=== PATIENT | female | born 1980 ===

== ENCOUNTER 2016-12-25 19:42 | Emergency (ER) | payer MEDICAID ==
[2016-12-25 20:47] VITALS: BMI 25.6
[2016-12-25 21:25] LABS: URINE BACTERIA RARE (<OCC); URINE BILIRUBIN NEGATIVE (NEGATIVE); URINE BLOOD NEGATIVE (NEGATIVE); URINE CLARITY TURBID (Clear); URINE COLOR YELLOW (YELLOW); URINE GLUCOSE (UA) NEG (Normal); URINE LEUKOCYTE ESTERASE NEG Leu/uL (Negative); URINE NITRATE NEGATIVE (NEGATIVE); URINE PROTEIN NEGATIVE (NEGATIVE); URINE UROBILINOGEN 0.2-1.0 mg/dL (0.2-1.0)
== END 2016-12-25 21:15 | disposition home or self-care (01) ==
LOC: H.EROB2 19:42
DX: O47.03 False labor before 37 completed weeks of gestation, third trimester (principal); Z3A.21 21 weeks gestation of pregnancy

== ENCOUNTER 2017-03-11 04:59 | Emergency (ER) | payer MEDICAID ==
[2017-03-11 04:59] VITALS: BMI 25.6
--- NOTE | 2017-03-11 08:06 | OBHP ---
Datetime: 03/11/2017 06:48 IP Adm Impression: , intrauterine IP Admit Plan: Discharge home Admit Comment, IP Provider: 36 yo at 32.0 weeks confirmed by u/s at 8w, with an ALMA of 05/06/17 presents to [facility] with complaints of abdominal discomfort and abdominal pain. Denies vaginal bleeding , loss of fluid, regular contractions. Feels fetus moving. Last sexual activity one day ago. Denies any problems with this . Past OBhx: none. . Past medical hx: colon cancer at age 19, ovarian cyst. Follows up with GI regularly for colonoscop ies. Past surg hx: colon tumor resection in 1999, L oophorectomy in 2002, tummy tuck in 2013. Social hx: denies tobacco, alcohol, drug use Meds: vitamins Allergies: NKDA care: [facility] Next visit 03/13. ROS: denies chest pain, shortness of breath, nausea, vomiting, diarrhea, headache, dizziness, toil eting issues PE: BP: 99/56. HR 88. FHR: 145 General: AAOx3, not in acute distress CV: S1,S2, regular rate and rhythm Abd: gravid, +BS Back: negative for CVA tenderness bilaterally Extremities: no edema, no pain on palpation Assessment: 36 yo with IUP at 32.0 weeks. Not in active labor at this time. Abdominal discomf ort likely due to intestinal gas. Reassuring FHR. Plan: Discharge home with labor precautions- explained to pt to return to hospital if there is vaginal b leeding, loss of fluid, decreased movement, or contractions that occur closer together and are stronger. -[email or web address] Addendum by Dr. Manuel: Patient evalauted independently and I agree with the above. Patient is a @ 32 wks with history of abdominal pain that was unresolving. Patient otherwise denies VB, leaking , +FM, no ctxns. Patient is AMA, has a history of colon cancer with colon resection and abdominalplas ty. When patient was being evalauted, patient reported she no longer had abdominal pain or discomfort . FHR = 125 mod kayla, +accels, no decels, pt had occasional contractions did not feel them while being evaluated. Patient currently asymptomatic, ruled out for labor, possible GI discomfort the p atient was having. Extremities - PN: Normal Abdomen - PN: Normal Back - PN: Normal Lungs - PN: Normal Heart - PN: Normal Thyroid - PN: Not Done HEENT - PN: Normal General - PN: Normal FHR - Baseline A Provider: 125 Comments, ACOG Physical Exam: scars from prior abdominal surgeries visualized. Gestation - Est Wks by US: 32.0 IP Hx Assessment: The History has been Reviewed and is Current EGA AdmitDate IP: 32.0 Vital Signs Provider: Reviewed IP Chief Complaint: Maternal discomfort NICHD Variability Prov Fetus A: Moderate 6-25bpm NICHD Accel Fetus A IP Provider: 15X15 FHR Category Provider Fetus A: Category I Datetime: 12/25/2016 21:28 IP Chief Complaint Other: vaginal brown discharge. Pelvic Type - PN: Adequate Neurologic - PN: Normal Dilatation, Provider: 0 Genitourinary Exam: Normal
--- NOTE | 2017-03-11 08:08 | OBDCSUM ---
Datetime: 03/11/2017 06:28 Discharged to, Provider: Home Follow up at, Provider: [facility] Disch Instr Activity: Normal activity Disch Instr Diet: Regular Discharge Instructions, Provider: Routine instructions given Discharge Diagnosis, Provider: False Labor - Undelivered Discharge Time: 03/11/2017 06:31 Follow up in weeks, Provider: 03/13/2017 Disch Referrals: None Contraception discussed, Prov: Yes Disch Activity Restrictions: No lifting
[2017-03-11 10:47] VITALS: BP 95/56; PULSE 90
== END 2017-03-11 06:30 | disposition home or self-care (01) ==
LOC: H.EROB2 04:59
DX: O47.03 False labor before 37 completed weeks of gestation, third trimester (principal); Z3A.32 32 weeks gestation of pregnancy

== ENCOUNTER 2017-04-26 07:03 | Inpatient (IN) | payer MEDICAID ==
[2017-04-26 07:54] VITALS: BMI 29.6
[2017-04-26] MEDS ORDERED: Lactated Ringer's 1,000 ML IV SCH ×2 (08:00)
--- NOTE | 2017-04-26 08:43 | OBADHP ---
Datetime: 04/26/2017 08:21 Pelvic Type - PN: Adequate Extremities - PN: Normal Abdomen - PN: Normal Back - PN: Normal Breast - PN: Not Done Lungs - PN: Normal Heart - PN: Normal Thyroid - PN: Normal Neurologic - PN: Normal HEENT - PN: Normal General - PN: Normal FHR - Baseline A Provider: 130 Amniotic Fluid Color, Provider: Clear Membranes, Provider: Ruptured Comments, ACOG Physical Exam: GBS negative RPR/HIV negative. GC/Ch negative Cervical Exam: closed Spec exam: Positive pulling, ROM, Ferning + U/S cephalic presentation Pool Provider: Positive Ferning Provider: Positive Vital Signs Provider: Reviewed; Within Normal Limits IP Chief Complaint: Uterine contractions; Suspected ruptured membranes NICHD Accel Fetus A IP Provider: 15X15 FHR Category Provider Fetus A: Category I NICHD Decel Fetus A IP Provider: None Dilatation, Provider: Closed Genitourinary Exam: Normal DTRs - PN: Normal EGA AdmitDate IP: 38.4 IP Admit Plan: Admit to unit; Initiate labor augmentation protocol; Observation/Evaluation Datetime: 04/26/2017 08:10 Admit Comment, IP Provider: 36 yo at 38.4 weeks confirmed by u/s at 8w, with an ALMA of 05/06/17 presents to [facility] with complaints of abdominal discomfort/CTX and SROM. Admits LOF/CTX and some bleed ing. Feels fetus moving. Denies any problems with this . Past OBhx: none. . Past medical hx: colon cancer at age 19, ovarian cyst. Follows up with GI regularly for colonoscop ies. Past surg hx: colon tumor resection in 1999, L oophorectomy in 2002, tummy tuck in 2013. Social hx: denies tobacco, alcohol, drug use Meds: vitamins Allergies: NKDA care: [facility] [place] PNL: GBS nega, RPR/HIV neg FH: Denies ROS: denies chest pain, shortness of breath, nausea, vomiting, diarrhea, headache, dizziness, toil eting issues PE: BP: 106/64. FHR: 130 General: AAOx3, not in acute distress CV: S1,S2, regular rate and rhythm Abd: gravid, +BS Back: negative for CVA tenderness bilaterally Extremities: no edema, no pain on palpation Cervical Exam: closed Spec exam: Positive pulling, ROM, Ferning + U/S cephalic presentation Assessment: 36 yo with IUP at 38.4 weeks. CTX, Not in active labor at this time. Reassuring F HR. - Admit patient to L_D - Labs Ordered - Start labor augmentation Case discussed with Dr. Major --- Julio C Crystal, [facility] [facility] pt was seen and examined by me with PGY1 - agree with note EXCEPT PLAN LABO R INDUCTION will admit; IV access; observe progress...condition, IOL, pain management, medications, labor, delivery and care MAHNDO Presentation-Admit: Vertex IP Hx Assessment: The History has been Reviewed and is Current NICHD Variability Prov Fetus A: Moderate 6-25bpm Effacement, Provider: destiny Red, Provider: high IP Adm Impression: Term, intrauterine ; No Active Labor; Ruptured Membranes Datetime: 03/11/2017 06:48 Gestation - Est Wks by US: 32.0 Datetime: 12/25/2016 21:28 IP Chief Complaint Other: vaginal brown discharge.
[2017-04-26 10:25] LABS: BASO % 0.3 % (0.0-2.0); EOS # 0.1 K/uL (0.0-0.7); EOS % 0.9 % (0.0-4.0); HEMATOCRIT 40.9 % (34.0-47.0); LYMPH # 2.3 K/uL (1.0-4.3); LYMPH % 29.4 % (20.0-40.0); MEAN CELL VOLUME 91.1 fl (81.0-99.0); MEAN CORPUSCULAR HEMOGLOBIN 30.9 pg (27.0-31.0); MEAN PLATELET VOLUME 10.6 fl (7.2-11.7); MONO # 0.7 K/uL (0.0-0.8); NEUT # 4.8 K/uL (1.8-7.0); NEUT % 60.4 % (50.0-75.0); NRBC % 0.1 % (0.0-0.0); RED CELL DISTRIBUTION WIDTH 13.5 % (11.5-14.5); WHITE BLOOD COUNT 7.9 K/uL (4.8-10.8)
[2017-04-26] MEDS ORDERED: Sodium Chloride 0.9% 1,000 ML IV SCH (11:00)
[2017-04-26] MEDS ORDERED: Oxytocin 30 UNITS in Sodium Chloride 0.9% 500 ML IV ONE (23:08)
[2017-04-27] MEDS ORDERED: Nalbuphine 20 mg/ml Inj (1 ml) IVP PRN (01:21)
[2017-04-27] MEDS ORDERED: Lactated Ringer's 1,000 ML IV SCH (02:00)
[2017-04-27] MEDS: Lactated Ringer's 1,000 ML IV SCH ×2 (04:00→05:00)
[2017-04-27] MEDS ORDERED: Fentanyl/Bupivacaine HCl 250 ML EPI ONE (05:40)
[2017-04-27] MEDS ORDERED: Oxytocin 30 UNITS in Sodium Chloride 0.9% 500 ML IV ONE (06:16)
[2017-04-27] MEDS ORDERED: Lidocaine 1% Inj (20ml) ONE (06:19)
[2017-04-27] MEDS ORDERED: Benzocaine/Menthol SPRAY TOP PRN ×2 (09:09→13:31)
[2017-04-27] MEDS ORDERED: Oxycodone/Acetaminophen 5/325 mg Tab PO PRN ×4 (09:09→13:31)
[2017-04-27] MEDS ORDERED: Measles, Mumps, and Rubella 0.5 ML VIAL SC ONE (09:09)
[2017-04-27] MEDS ORDERED: Ammonia 2% Inhalant ONE (10:26)
--- NOTE | 2017-04-27 11:21 | OBDS ---
DELIVERY PERSONNEL Nurse Burglar Alarm Assembler Certified: alexey Delivery Doctor: Dr Thompson Scrub Nurse: alexey Camp Guard: GRIS Brody;GRIS Johnson Anesthesiologist: alexey Demand Inspector: alexey Resident: Dr Xavier MATERNAL INFORMATION Delivery Anesthesia: Local; Epidural Medications in Delivery: pitocin Estimated Blood Loss (ml): 200 Placenta Cultured: na Maternal Complications: Other RN Comments: Delivered by baby boy; 7/9 with shoulder dystocia; 7/9;Dr Callahan in [facility];with nursery nurses; code OB called ; outcome good;see MD's notes Provider Comments: Normal spontaneous vaginal delivery. Patient delivered viable infant male with Apgars of 7 and 9 at one and 5 minutes respectively. Inf ant delivered via ARIADNA position. After delivery of the head, shoulder dystocia encountered. Patient placed in [place] posit ioning, suprapubic pressure applied by RN. Midline episiotomy performed. After rotation of the staff toxicologist ior shoulder, infant delivered without complication. Pediatrics present at delivery. Cord gases collected. Cord blood collected. Placenta delivered spontaneously. Laceration repaired, as above. Patient tolerated delivery and repair well. Uterus firm and appropriately hemostatic follo wing delivery. Estimated blood loss 300 mL. LABOR SUMMARY EDC: 05/06/2017 00:00 No. Babies in Womb: 1 Attempted: No Labor Anesthesia: Epidural LABOR INFORMATION Onset of Labor: 04/27/2017 01:30 Complete Dilatation: 04/27/2017 07:25 Cervical Ripening Agents: Cytotec @ (Annotations: Fourth dose of Cytotec 50 mcg tab PO given ) Oxytocin: N/A Group B Beta Strep: Negative Antibiotics # of Doses: 0 Antibiotics Time of Last Dose: 0 Steroids Given: None Reason Steroids Not Administered: Not Applicable Other Reason Not Administered: na MEMBRANES Membranes Rupture Method: Spontaneous Rupture of Membranes: 04/26/2017 06:00 Length of Rupture (hrs): 26.75 Amniotic Fluid Color: Clear Amniotic Fluid Amount: None Amniotic Fluid Odor: Normal STAGES OF LABOR Stage 1 hrs: 5 Stage 1 min: 55 Stage 2 hrs: 1 Stage 2 min: 20 Stage 3 hrs: 0 Stage 3 min: 5 Total Time in Labor hrs: 7 Total Time in Labor min: 20 VAGINAL DELIVERY Episiotomy: Median Laceration Extension: Second Degree Laceration Type: Perineal Laceration Repair: Yes Laceration Repair Note: Second-degree midline perineal episiotomy performed due to shoulder dystocia . After delivery of infant and placenta, perineal area infiltrated with 1% lidocaine. Laceration repa ired with 2. 0 repeat without complication. Patient tolerated well. Well. Initial Vag Sponge Count: 6 Final Vag Sponge Count: 6 Initial Vag Sharps Count: 3 Final Vag Sharps Count: 3 Sponge Count Correct: Yes Sharps Count Correct: Yes Count Comment: correct count BABY A INFORMATION Infant Delivery Date/Time: 04/27/2017 08:45 Method of Delivery: Vaginal Born in Route : No : N/A Forceps: Outlet Vacuum Extraction: N/A Shoulder Dystocia : Yes ASSISTED DELIVERY BABY A Indication for Assisted Delivery: na SHOULDER DYSTOCIA BABY A Delivery of Head: 04/27/2017 08:44 Infant Delivery Date/Time: 04/27/2017 08:45 Time Head to Delivery : 1.0 1st Intervention to Resolve: McRobert's Maneuver 2nd Intervention to Resolve: Suprapubic Pressure 3rd Intervention to Resolve: Episiotomy Verify NO Fundal Pressure: No Fundal Pressure Applied PRESENTATION/POSITION BABY A Presentation: Cephalic Cephalic Presentation: Vertex Breech Presentation: N/A PLACENTA INFORMATION BABY A Placenta Delivery Time : 04/27/2017 08:50 Placenta Method of Delivery: Spontaneous Placenta Status: Delivered SCORES BABY A Heart Rate 1 min: >100 bpm Resp Effort 1 min: Good Cry Reflex Irritability 1 min: Grimace Muscle Tone 1 min: Some Flexion of Extremities Color 1 min: Body [place], Extremities Blue SCORE 1 MIN: 7 Heart Rate 5 min: >100 bpm Resp Effort 5 min: Good Cry Reflex Irritability 5 min: Cough or Sneeze or Pulls Away Muscle Tone 5 min: Active Motion Color 5 min: Body [place], Extremities Blue SCORE 5 MIN: 9 INFORMATION BABY A Gestational Age at Delivery: 38.4 Gestational Status: Term Outcome : Liveborn Condition : Stable Infant Sex: Male IDENTIFICATION/MEDS BABY A ID Band Location: Left Leg; Left Arm WEIGHT/LENGTH BABY A Infant Birthweight (gms): 3900 Weight (lb): 8 Weight (oz): 10 CORD INFORMATION BABY A No. Cord Vessels: 3 Nuchal Cord : na Nuchal Cord Other: na True Knot: x1 Cord pH Baby Venous: yes Cord Blood Taken: Yes Banking/Donate Info: no Infant Suction: Mouth; Nose; Pharynx
[2017-04-28 06:25] LABS: HEMATOCRIT 32.8 % (34.0-47.0); MEAN CORPUSCULAR HEMOGLOBIN 30.2 pg (27.0-31.0); MEAN CORPUSCULAR HGB CONC 32.8 g/dL (33.0-37.0); RED CELL DISTRIBUTION WIDTH 13.8 % (11.5-14.5); WHITE BLOOD COUNT 12.4 K/uL (4.8-10.8)
[2017-04-28] MEDS ORDERED: Prenatal Multivit/Folic Acid/Iron Tab PO SCH ×2 (09:00)
--- NOTE | 2017-04-28 09:39 | OBPPN ---
Datetime: 04/28/2017 04:46 PP Pain Prov: Within normal limits PP Nausea Prov: Denies PP Flatus Prov: Yes PP BM Prov: No PP Breasts Prov: Not Done PP Heart Prov: Normal PP Lungs Prov: Normal PP Abdomen/Uterus Prov: Normal PP Lochia Prov: Normal PP Vulva/Perineum Prov: Normal PP CVA Tenderness Prov: Normal PP Extremities Prov: Normal PP C/S Incision Prov: Normal PP Progress Prov: Normal PP Impression Prov: Normal progression PP Plan Prov: Continue present management PP Progress Note Prov: PPD#1 S: pt seen and examined bedside this AM. s/p NVD. No acute overnight events. Admits mild pain but well controlled on meds. Pt is eating regular diet, and ambulating and voiding without difficulties. Patient is breastfeed her baby. +/- gas, BM. Denies fever, chills, headache, chest pain, dyspnea, pal pitations, n/v/d/c and remains afebrile. O: VS stable GEN: NAD Cardio: S1S2 no M/G/R Resp: vesicular breathing b/l Abdomen: no tenderness to palpation. BS+, Fundus is firm, at the umbilicus Neuro: AAO x 3 Ext: no edema noted, no calf tenderness Assessment/Plan: 36 y/o female delivered @ 38.4 wks to a baby boy via NVD on 04/27/17. Doing well PPD1. OOB with caution SCD's for DVT prophylaxis, ambulating Percocet 5/325mg 1-2 tablets po q6 for mod/sev pain Ibuprofen 600mg 1 tab Encourage and ambulation Senakot 17.2mg PO qHS Follow up CBC --- Julio C Crystal, PGY I [facility]...With PY1, I saw and examined pt. agree with note. Discussed condition wi th pt - incl active management, pain medications, labor IOL, delivery and care. She did n ot want any medications even for induction at this time. RUBI IP PP Procedures: Rubella Vital Signs Provider PP: Reviewed; Within Normal Limits
[2017-04-28] MEDS ORDERED: Measles, Mumps, and Rubella 0.5 ML VIAL SC ONE (10:00)
[2017-04-29] MEDS ORDERED: Measles, Mumps, and Rubella 0.5 ML VIAL SC ONE (09:00)
--- NOTE | 2017-04-29 09:29 | OBPPN ---
Datetime: 04/29/2017 05:48 PP Pain Prov: Within normal limits PP Nausea Prov: Denies PP Flatus Prov: Yes PP BM Prov: No PP Breasts Prov: Not Done PP Heart Prov: Normal PP Lungs Prov: Normal PP Abdomen/Uterus Prov: Normal PP Lochia Prov: Normal PP Vulva/Perineum Prov: Normal PP CVA Tenderness Prov: Normal PP Extremities Prov: Normal PP C/S Incision Prov: Not Applicable PP Progress Prov: Normal PP Impression Prov: Normal progression PP Plan Prov: Continue present management PP Progress Note Prov: PPD#2 S: pt seen and examined bedside this AM. s/p NVD. Mom is worried about baby, doesnt want to get d/ c home today b/c baby is not d/c by fixing machine operator due to uncontrolled BS. Denies pain. Pt is eating re gular diet, and ambulating and voiding without difficulties. Patient is breastfeed her baby. +/- gas, BM. Denies fever, chills, headache, chest pain, dyspnea, palpitations, n/v/d/c and remains afebrile. O: VS stable GEN: NAD Cardio: S1S2 no M/G/R Resp: vesicular breathing b/l Abdomen: no tenderness to palpation. BS+, Fundus is firm, at the umbilicus Neuro: AAO x 3 Ext: no edema noted, no calf tenderness Assessment/Plan: 36 y/o female delivered @ 38.4 wks to a baby boy via NVD on 04/27/17. Doing well PPD1. OOB with caution SCD's for DVT prophylaxis, ambulating Percocet 5/325mg 1-2 tablets po q6 for mod/sev pain Ibuprofen 600mg 1 tab Encourage and ambulation Senakot 17.2mg PO qHS CBC: 10.8/32.8 Will d/c home tomorrow --- Julio C Crystal, PGY I [facility]. Pt is PPD2 - clinically fine; rubella equivocal (MMR ordered) will discharge home Follow up in 6w IP PP Procedures: None Vital Signs Provider PP: Reviewed; Within Normal Limits
--- NOTE | 2017-04-29 09:32 | OBDCSUM ---
Datetime: 04/29/2017 09:28 Discharged to, Provider: Home Follow up at, Provider: OB provider Disch Instr Activity: Normal activity Disch Instr Diet: Regular Discharge Instructions, Provider: Routine instructions given Discharge Diagnosis, Provider: Term Delivered Follow up in weeks, Provider: 6w Disch Referrals: None Contraception discussed, Prov: Yes Discharge Comment, Provider: [facility]. Pt is PPD2 - clinically fine; rubella equivocal (MMR ordered) will discharge home Follow up in 6w
[2017-04-30 03:09] VITALS: BP 117/71; PULSE 90; RESP 20; TEMP 98.7; O2SAT 98
== END 2017-04-29 11:00 | disposition home or self-care (01) | DRG 373 ==
LOC: H.EROB2 07:03 → H.L&D 07:54 → H.OB/GYN 04-27 11:25
PROVIDERS: ADMIT Obstetrics & Gynecology; ATTEND Obstetrics & Gynecology
PROC: 4A1HXCZ Monitoring of Products of Conception, Cardiac Rate, External Approach (ICD-10-PCS; 2017-04-26)
PROC: 10E0XZZ Delivery of Products of Conception, External Approach (ICD-10-PCS; principal; 2017-04-27)
PROC: 0KQM0ZZ Repair Perineum Muscle, Open Approach (ICD-10-PCS; 2017-04-27)
DX: O66.0 Obstructed labor due to shoulder dystocia (principal); O70.1 Second degree perineal laceration during delivery; Z37.0 Single live birth; Z3A.38 38 weeks gestation of pregnancy; Z85.038 Personal history of other malignant neoplasm of large intestine